=== PATIENT | female | born 1995 | race Caucasian/White ===

== ENCOUNTER 2016-06-07 23:35 | Emergency (ER) | payer BC, OTHER ==
[~2016-06-07] VITALS: Ht 165.1 cm; Wt 89.1 kg
[2016-06-07 23:39] VITALS: BP 150/85
[2016-06-07] MEDS ORDERED: DIPHENHYDRAMINE 50 MG CAPSULE ONE (23:55)
[2016-06-07] MEDS ORDERED: FAMOTIDINE 20 MG TABLET ONE (23:56)
[2016-06-08] MEDS ORDERED: FAMOTIDINE 20 MG TABLET PO ONE
[2016-06-08] MEDS ORDERED: DIPHENHYDRAMINE 25 MG CAPSULE PO ONE
== END 2016-06-08 01:05 | disposition home or self-care (01) ==
LOC: ED 06-08 00:59
DX: T78.3XXA Angioneurotic edema, initial encounter (principal); X58.XXXA Exposure to other specified factors, initial encounter; Y93.89 Activity, other specified; Y99.8 Other external cause status; Y92.89 Other specified places as the place of occurrence of the external cause
CPT/HCPCS: 99284; J7512; Q0163

== ENCOUNTER → 2016-06-27 | Outpatient (CLI) | payer OTHER | END | disposition home or self-care (01) | LOC: CFH 12:28 | PROVIDERS: ATTEND Genetic Counselor, MS | DX: E28.2 Polycystic ovarian syndrome (principal) | CPT/HCPCS: 76856 ==

== ENCOUNTER 2016-07-29 19:01 | Emergency (ER) | payer OTHER ==
[~2016-07-29] VITALS: Ht 167.6 cm; Wt 89.6 kg
[2016-07-29 19:43] LABS: PATH.CAST-FLAG NOT PRESENT; SPERM-FLAG NOT PRESENT; SRC-FLAG NOT PRESENT; XTAL-FLAG NOT PRESENT; YLC-FLAG NOT PRESENT
[2016-07-29 20:08] LABS: HCG UR OBC PASS
[2016-07-29] MEDS ORDERED: PHENAZOPYRIDINE 200 MG TABLET PO ONE (20:30)
[2016-07-29] MEDS ORDERED: PHENAZOPYRIDINE 200 MG TABLET ONE (20:31)
[2016-07-29 21:05] VITALS: BP 143/82
== END 2016-07-29 21:07 | disposition home or self-care (01) ==
LOC: ED 20:45
DX: N39.0 Urinary tract infection, site not specified (principal); R31.0 Gross hematuria; Z88.8 Allergy status to other drugs, medicaments and biological substances
CPT/HCPCS: 81001; 81025; 87077; 87086; 87186; 99284

== ENCOUNTER 2016-08-26 05:57 | Day surgery (SDC) | payer OTHER ==
[~2016-08-26] VITALS: Ht 165.1 cm; Wt 90.0 kg
[2016-08-26] MEDS ORDERED: FENTANYL PF 100 MCG/2ML ONE ×3 (08:08→09:26)
[2016-08-26] MEDS ORDERED: PROPOFOL 10 MG/ML, 20ML ONE (08:14)
[2016-08-26] MEDS ORDERED: ONDANSETRON 2MG/ML, 2ML ONE (08:14)
[2016-08-26] MEDS ORDERED: DEXAMETHASONE 4 MG/ML, 1ML ONE (08:14)
[2016-08-26] MEDS ORDERED: METOCLOPRAMIDE 5 MG/ML, 2ML ONE (08:14)
[2016-08-26] MEDS ORDERED: SUCCINYLCHOLINE 20 MG/ML, 10ML ONE (08:14)
[2016-08-26] MEDS ORDERED: ROCURONIUM 10 MG/ML ONE (08:14)
[2016-08-26] MEDS ORDERED: OXYcodone 5 MG/5 ML ORAL.SOL UDC ONE (08:55)
[2016-08-26] MEDS: FENTANYL PF 100 MCG/2ML IV PRN ×4 (08:55→09:26)
[2016-08-26] MEDS: OXYcodone 5 MG/5 ML ORAL.SOL UDC PO PRN ×2 (09:00→09:20)
[2016-08-26] MEDS: LACTATED RINGERS 1,000 ML IV SCH ×2 (14:48→14:49)
[2016-08-28 10:03] LABS: HCG UR OBC PASS
== END 2016-08-26 11:30 | disposition home or self-care (01) ==
LOC: OUT 05:57
PROVIDERS: ATTEND Otolaryngology
DX: J03.00 Acute streptococcal tonsillitis, unspecified (principal); J35.01 Chronic tonsillitis; Z98.890 Other specified postprocedural states
CPT/HCPCS: 42826; 88300; J0330; J1100; J2405; J2704; J2765; J3010; J7120; 36415; 81025; 84703; J3490